=== PATIENT | female | born 1975 | race Asian ===

== ENCOUNTER 2022-05-09 09:10 | Outpatient (CLI) | payer BC, SELFPAY ==
[2022-05-09 14:48] LABS: Chloride* 107 mmol/L (96-114)
[2022-05-09 14:49] LABS: Albumin* 4.6 g/dL (3.3-5.0); Potassium* 4.5 mmol/L (3.6-5.1); Sodium* 141 mmol/L (135-149)
[2022-05-09 14:51] LABS: Carbon Dioxide* 26 mmol/L (20-32); Cholesterol* 252 mg/dL (90-199); Creatinine* 0.6 mg/dL (0.5-1.5); Estimated Glomerular Filt Rate 111 ml/min
[2022-05-09 14:52] LABS: Alanine Aminotransferase* 33 U/L (4-35); Alkaline Phosphatase* 85 U/L (40-150); Aspartate Amino Transferase* 24 U/L (12-35); Bilirubin Total* 0.4 mg/dL (0.1-1.5); Blood Urea Nitrogen* 16 mg/dL (5-24); Glucose* 96 mg/dL (60-115); Total Protein* 7.2 g/dL (6.0-8.3); Triglycerides* 82 mg/dL (40-149)
[2022-05-09 14:53] LABS: HDL Cholesterol* 102 mg/dL (>=50); LDL Cholesterol Calculated 134 mg/dL (<100)
== END 2022-05-09 09:11 | disposition home or self-care (01) ==
PROVIDERS: PCP Physician Assistant Medical; Visit Provider Physician Assistant Medical
DX: Z01.419 Encounter for gynecological examination (general) (routine) without abnormal findings (principal); F41.1 Generalized anxiety disorder; N95.9 Unspecified menopausal and perimenopausal disorder; Z13.6 Encounter for screening for cardiovascular disorders
CPT/HCPCS: 80053; 80061; 84443

== ENCOUNTER 2022-06-13 12:53 | Outpatient (CLI) | payer BC, SELFPAY ==
--- NOTE | 2022-06-13 13:17 | W.ANESCHARGE ---
Anesthesia Charges Start Date/Time Anesthesia Start Date: 06/13/22 Anesthesia Start Time: 13:33 Stop Date/Time Anesthesia Stop Date: 06/13/22 Anesthesia Stop Time: 14:06
--- NOTE | 2022-06-13 14:14 | W.ANESCHARGE ---
Anesthesia Charges Start Date/Time Anesthesia Start Date: 06/13/22 Anesthesia Start Time: 13:33 Stop Date/Time Anesthesia Stop Date: 06/13/22 Anesthesia Stop Time: 14:06
== END 2022-06-13 12:54 | disposition home or self-care (01) ==
PROVIDERS: PCP Physician Assistant Medical; Visit Provider Internal Medicine
DX: Z12.11 Encounter for screening for malignant neoplasm of colon (principal); K64.8 Other hemorrhoids; K63.5 Polyp of colon
CPT/HCPCS: 00811; 45380; 88305; J2704

== ENCOUNTER 2022-07-30 13:44 | Outpatient (CLI) | payer BC, SELFPAY ==
--- NOTE | 2022-07-30 14:00 | CRLHL7_ITS ---
For Patients: As a result of the Century Cures Act, medical imaging exams and procedure reports are released immediately into your electronic medical record. You may view this report before your referring provider. If you have questions, please contact your health care provider. BILATERAL SCREENING MAMMOGRAM WITH COMPUTER-AIDED DETECTION AND TOMOSYNTHESIS TECHNIQUE: CC and MLO views were obtained. These mammographic images have been obtained using full-field digital technique. These mammographic images were interpreted with the benefit of computer-aided detection. Breast Tomosynthesis was used in this interpretation. COMPARISON FILM: 10/19/15. FINDINGS: The breasts are heterogeneously dense, which may obscure small masses IMPRESSION: There is no radiographic evidence for malignancy. ASSESSMENT: BI-RADS Category 1: Negative RECOMMENDATION: Routine screening mammogram in 1 year. A lay language report of this examination will be provided to the patient. Kumar Castellanos M.D. Diagnostic Radiologist [email or web address] Transcribed: 5:28 p.ghanshyam smith/Dictated by: Kumar Castellanos MD @ 07/31/2022 1:20:00 PM (Electronically Signed)
== END 2022-07-30 13:45 | disposition home or self-care (01) ==
LOC: MAMMO 13:44
PROVIDERS: PCP Physician Assistant Medical; Visit Provider Physician Assistant Medical
DX: Z12.31 Encounter for screening mammogram for malignant neoplasm of breast (principal); R92.2 Inconclusive mammogram
CPT/HCPCS: 77063; 77067

== ENCOUNTER 2024-03-16 14:28 | Outpatient (CLI) | payer BC, SELFPAY | END 2024-03-16 14:29 | disposition home or self-care (01) | PROVIDERS: PCP Physician Assistant Medical; Visit Provider Physician Assistant Medical | DX: Z13.6 Encounter for screening for cardiovascular disorders (principal); Z13.29 Encounter for screening for other suspected endocrine disorder; Z13.9 Encounter for screening, unspecified | CPT/HCPCS: 80053; 80061; 84443 ==